=== PATIENT | male | born 1980 | race Caucasian/White ===

== ENCOUNTER 2016-07-09 12:12 | Inpatient (IN) | payer OTHER ==
[~2016-07-09] VITALS: Ht 188 cm; Wt 95.3 kg
--- NOTE | 2016-07-09 13:31 | ED PSYCHIATRIC COMPLAINT ---
History of Present Illness General Chief Complaint: ETOH/Drug Related Complaint Stated Complaint: ETOH DETOX Source: patient, family Exam Limitations: intoxication Allergies Coded Allergies: NO KNOWN ALLERGIES (08/23/12) Reconcile Medications No Known Home Medications Triage Note: 35 YEAR OLD MALE STATES THAT HE NEEDS DETOX FROM ETOH, LAST DRANK THIS AM A SIX PACK OF BEER AND 1/2 PINT OF [place]THER[place] COMFORT. LAST DETOX WAS 3 YEARS AGO AND WAS IN A 18 MONTH RESIDENTIAL PROGRAM. PT STATES THAT HE HAS A HISTORY OF SEIZURES. DENIES SI/HI. LAST DRINK WAS 30 MINUTES AGO Triage Nurses Notes Reviewed? yes HPI: Patient is a 35-year-old male presents requesting alcohol detox. Patient reports he began drinking again 6 months ago drinks approximately 3 pints of Southern comfort and 12 beers daily. Last drink was just prior to arrival. Patient has had an alcohol withdrawal seizure in 2011, none since. Patient complaining of upper abdominal pain, anxiety, nausea. Symptoms are currently severe. Intermittent cannabis use. Patient has used cocaine previously, denies any recent use. Patient reports he has fallen twice over the past 1 week, falling onto his knees both times. Patient denies any head injuries, suicidal ideation, recent illicit substance use. (PACO BEY,BRANDI) Vital Signs & Intake/Output Vital Signs & Intake/Output Vital Signs Date Time Temp Pulse Resp B/P B/P Pulse O2 O2 Flow FiO2 Mean Ox Delivery Rate 07/09 2024 97.8 120 20 146/90 93 Room Air 07/09 1929 99.0 120 18 122/78 95 Room Air 07/09 1711 99.3 123 16 143/90 07/09 1705 99.3 123 16 143/90 95 Room Air 07/09 1605 97.5 119 16 139/86 07/09 1603 97.5 119 16 139/86 94 Room Air 07/09 1511 Room Air 07/09 1405 98.3 124 18 144/88 07/09 1226 98.3 124 18 144/88 98 Room Air Past History Travel History Traveled to [place] past 21 day No Medical History Any Pertinent Medical History? 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 No (BRANDI THORPE) Review of Systems Review of Systems Constitutional: Denies: chills, fever. EENTM: Reports: no symptoms. Respiratory: Denies: cough, short of breath. Cardiovascular: Denies: chest pain. GI: Reports: see HPI, abdominal pain, nausea. Genitourinary: Reports: no symptoms. Musculoskeletal: Reports: joint pain (chronic, unchanged). Skin: Reports: no symptoms. Neurological/Psychological: Reports: see HPI. Hematologic/Endocrine: Reports: no symptoms. Immunologic/Allergic: Reports: no symptoms. (BRANDI THORPE) Physical Exam Physical Exam General Appearance: alert, awake, intoxicated Head: atraumatic, normal appearance Eyes: Bilateral: normal appearance, PERRL, EOMI. Ears, Nose, Throat: normal pharynx, normal ENT inspection, hearing grossly normal Neck: normal inspection, supple, full range of motion, no midline tenderness Respiratory: normal breath sounds, chest non-tender, no respiratory distress, lungs clear Cardiovascular: tachycardia (regular rhythm, no murmur) Gastrointestinal: normal bowel sounds, soft, diffuse upper abdominal tenderness. No rebound, no guarding, no rigidity Extremities: normal range of motion Neurological/Psychiatric: awake, alert, anxious, at times inappropriate affect. No suicidal ideation. Thoughts/Hallucinations: no apparent hallucination Skin: intact, normal color, warm/dry SAD PERSONS Done? patient not suicidal (BRANDI THORPE) Progress Differential Diagnosis: drug intoxication, drug overdose, drug withdrawal, electrolyte abnormality, alcohol intoxication, alcohol withdrawal (BRANDI THORPE) Plan of Care: Orders Procedure Date/time Status Regular Diet 07/10 B Active CBC WITHOUT DIFFERENTIAL 07/10 599 Active BASIC ELECTROLYTES PLUS BUN&CR 07/10 599 Active PROTHROMBIN TIME 07/09 2129 Active PHOSPHORUS 07/09 2129 Active FOLIC ACID 07/09 2129 Active VITAMIN B12 07/09 2129 Active Vital Signs 07/09 2026 Active Teach/Educate 07/09 2026 Active Pain Treatment and Response 07/09 2026 Active Nutritional Intake, Monitor 07/09 2026 Active Isolation 07/09 2026 Active Intake & Output 07/09 2026 Active Patient Care Conference 07/09 2026 Active Activity/Ambulation 07/09 2026 Active CHLAMYDIA DNA PROBE 07/09 2024 Active HIV (Reflex to HIVCQ) 07/09 2024 Active URINALYSIS 07/10 1915 Active EKG 07/09 1914 Active TRC EVALUATION (GEN) 07/09 190 Active PT Evaluate & Treat 07/09 190 Active Saline Lock 07/09 190 Active Pathway - chart 07/09 190 Active House Staff 07/09 1908 Active Code Status 07/09 1908 Active Misc Message 07/09 184 Active ED Holding Orders 07/09 1841 Active Vital Signs 07/09 184 Active Code Status 07/09 1841 Complete Patient Data 07/09 1814 Active Admit to inpatient 07/09 1804 Active Add-on Test (ER Only) 07/09 1719 Active Intake & Output 07/09 1606 Active MAGNESIUM 07/09 1500 Complete CIWA 07/09 1344 Complete URINE DRUGS OF ABUSE 07/09 1341 Complete LIPASE 07/09 1341 Complete ETHANOL 07/09 1341 Complete COMPREHENSIVE METABOLIC PANEL 07/09 1341 Complete CBC WITHOUT DIFFERENTIAL 07/09 1341 Complete AMYLASE 07/09 1341 Complete Lab Add-on Test 07/09 UNK Active VTE Mechanical Prophylaxis 07/09 UNK Active Vital Signs 07/09 UNK Complete Intake & Output 07/09 UNK Complete CIWA 07/09 UNK Active SOCIAL WORK CONSULT 07/09 UNK Active Current Medications Sig/Jeanne Start time Last Medication Dose Stop Time Status Admin Folic Acid 1 MG DAILY 07/11 1000 AC (Folic Acid) Multivitamins 1 TAB DAILY 07/11 1000 AC (Theragran Vitamins) Cyanocobalamin/ 1 BAG DAILY@1700 07/10 1700 AC Thiamine/Pyridoxine 07/11 0059 (Vitamin in I.V.) Sodium Chloride 1,000 ML (Normal Saline 0.9%) Lorazepam 2 MG Q6 07/09 2359 AC (Ativan) 07/10 0001 Thiamine HCl 500 MG TID 07/09 2200 AC (Vitamin B-1) 07/12 1702 Sodium Chloride 100 ML (Normal Saline 0.9%) Acetaminophen 500 MG Q12P PRN 07/09 1914 AC (Tylenol) Lorazepam 0 Q1P PRN 07/09 1914 AC 07/09 (Ativan) 2122 Ondansetron HCl 4 MG Q8P PRN 07/09 1914 AC 07/09 (Zofran) 2044 Oxycodone HCl 5 MG Q8P PRN 07/09 1914 (Roxicodone) Enoxaparin Sodium 40 MG DAILY 07/09 1904 AC 07/09 (Lovenox) 2005 Cyanocobalamin/ 1 BAG ONCE ONE 07/09 1545 AC 07/09 Thiamine/Pyridoxine 07/09 9054 1709 (Vitamin in I.V.) Dextrose/Water 1,000 ML (D5W 1000) Laboratory Tests 07/09/16 2105: HIV 1&2 Ab Western Blot Pending 07/09/16 1500: Anion Gap 17 H, Estimated GFR > 60, BUN/Creatinine Ratio 15.0, Glucose 106 H, Calcium 8.2 L, Magnesium 2.2, Total Bilirubin 0.7, AST 246 H, ALT 174 H, Alkaline Phosphatase 120, Total Protein 7.0, Albumin 4.0, Globulin 3.0, Albumin/ Globulin Ratio 1.3, Amylase 54, Lipase 173, CBC w Diff NO MAN DIFF REQ, RBC 5.45 , MCV 93.0, MCH 31.5 H, RDW 14.7 H, MPV 8.3, Gran % 63.8, Lymphocytes % 29.0, Monocytes % 6.3, Eosinophils % 0.3, Basophils % 0.6, Absolute Granulocytes 4.8, Absolute Lymphocytes 2.2, Absolute Monocytes 0.5, Absolute Eosinophils 0, Absolute Basophils 0, PUBS MCHC 33.9, Serum Alcohol 283.0 07/09/16 1445: Urine Opiates Screen < 100.00, Methadone Screen < 40, Barbiturate Screen < 60, Ur Phencyclidine Scrn < 6.00, Amphetamines Screen < 100, U Benzodiazepines Scrn < 85, Urine Cocaine Screen < 50, Urine Cannabis Screen 40.30, Urine Color Pending, Urine Clarity Pending, Urine pH Pending, Ur Specific [place] Pending, Urine Protein Pending, Urine Ketones Pending, Urine Nitrite Pending, Urine Bilirubin Pending, Urine Urobilinogen Pending, Ur Leukocyte Esterase Pending, Ur Microscopic Pending, Urine Hemoglobin Pending, Urine Glucose Pending 07/09/16 1000: Vitamin B12 Cancelled Microbiology 07/09 2024 URINE ROUT: Chlamydia DNA Probe (CLARA) - ORD 1550: Results of labs discussed with patient and his sister. Patient reports anxiety is currently severe. Discussed that medicating patient at this time for his anxiety would interfere with the possibility of him being admitted for alcohol detox. 1730: Patient CIWA score 15, patient continues to request alcohol detox. 2 mg of IV Ativan ordered. Hospitalist paged to discuss disposition. (BRANDI THORPE) Departure Departure Disposition: STILL A PATIENT Condition: Stable Clinical Impression Primary Impression: Alcohol withdrawal Qualifiers: Complication of substance-induced condition: uncomplicated Qualified Code: F10.230 - Alcohol dependence with withdrawal, uncomplicated Secondary Impressions: Elevated LFTs Referrals: UNKNOWN (PCP/Family) Departure Forms: Customer Survey General Discharge Information Prescriptions: Current Visit Scripts No Known Home Medications Admission Note Spoke With: GARRETT AG MD Documentation of Exam: Documentation of any treatments & extenuating circumstances including Concerns Regarding Discharge (functional status, medication knowledge or non-compliance, living conditions, etc.) that warrant an admission rather than observation: ciwa monitoring, ativan for prevention of seizures/DT's, social work consultation (BRANDI THORPE) PA/ASSOCIATE PRODUCER Co-Sign Statement Statement: ED Attending supervision documentation- [x] I saw and evaluated the patient. I have also reviewed all the pertinent lab results and diagnostic results. I agree with the findings and the plan of care as documented in the PA's/ASSOCIATE PRODUCER's documentation. [] I have reviewed the ED Record and agree with the PA's/ASSOCIATE PRODUCER's documentation. [] Additions or exceptions (if any) to the PAs/ASSOCIATE PRODUCER's note and plan are summarized below: [] (CHRIS HOLBROOK,JULIÁN Poe)
[2016-07-09 14:05] VITALS: BP 144/88
[2016-07-09 15:17] LABS: ABSOLUTE BASOPHIL COUNT 0 /CUMM (0.0-0.2); ABSOLUTE EOSINOPHIL COUNT 0 /CUMM (0.0-0.7); ABSOLUTE GRANULOCYTE CT 4.8 /CUMM (1.4-6.5); ABSOLUTE LYMPH COUNT 2.2 /CUMM (1.2-3.4); ABSOLUTE MONOCYTE COUNT 0.5 /CUMM (0.10-0.60); BASOPHIL % 0.6 % (0.0-2.0); EOSINOPHIL % 0.3 % (0-5); GRANULOCYTE % 63.8 % (42.2-75.2); HEMATOCRIT 50.7 % (42-52); MEAN CORPUSCULAR HGB 31.5 PG (27.0-31.0); MEAN CORPUSCULAR HGB CONC 33.9 G/DL (33.0-37.0); MEAN PLATELET VOLUME 8.3 FL (7.4-10.4); PLATELET COUNT 219 /CUMM (130-400); RBC DISTRIBUTION WIDTH 14.7 % (11.5-14.5); RED BLOOD CELL CT 5.45 /CUMM (4.70-6.10); WHITE BLOOD CELL COUNT 7.6 /CUMM (4.8-10.8)
[2016-07-09 16:05] VITALS: BP 139/86
[2016-07-09 17:11] VITALS: BP 143/90
--- NOTE | 2016-07-09 18:17 | History & Physical ---
JARED HOLBROOK,[facility] 07/09/16 1816: General Information and HPI MD Statement: I have seen and personally examined KRIS BELAL and documented this H&P. The patient is a 35 year old M who presented with a patient stated chief complaint of [Etoh detox]. Source of Information: patient, family, police Exam Limitations: no limitations History of Present Illness: 35/M with PMHx of ankylosing spondylitis and multiple alcohol detox admission presented to [facility] asking for alcohol detox because now he gets alcohol withdrawal symptom within few hours after not drinking. Patient has a history of multiple alcohol detox admissions with one episode of seizure that required ICU admission in 2012. Patient started drinking again around one year ago, he drinks approximately 3 pints of Southern comfort and 12 beers daily. Patient last drink was earlier today. Patient had 2 episodes of fall where he landed on his knees, he denies any head trauma. Patient reported palpitations, chest pain, shortness breath, cough productive of nonbloody white sputum, epigastric abdominal pain, nausea, multiple nonbloody vomiting, shortness breath, headache, and anxiety. Patient denies hallucination, suicidal or homicidal ideation, or loss of consciousness. Patient smoke 1/2 PPD for the past 25 years. Patient reported occasional use of cannabis. He denies any other recreational drug abuse. Patient reported 2 episodes of dysuria and hematuria 2 months ago, he has a girlfriend who recently got diagnosed with chlamydia. Patient also reports multiple episodes of yellow, thick, and smelly diarrhea, he related this diarrhea to heavy drinking. He also had hemorrhoids where he noticed some bright red blood on the toilet tissue. Patient use walker at baseline because of pain on his knees and hips secondary to ankylosing spondylitis. He was started on methotrexate at some point by his data collection associate, however he did not follow with PCP, data collection associate or any other physicians for a long time. Now patient is not on any medications. 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 Denies: chills, fever, malaise, unexplained weight loss. EENTM: Denies: blurred vision, double vision, visual changes, hearing changes. Cardiovascular: Reports: chest pain (mild), palpitations. Denies: edema, orthopena, peripheral edema, syncope. Respiratory: Reports: sputum production. Denies: cough, hemoptysis, orthopnea, short of breath, stridor, wheezing. GI: Reports: abdominal pain, diarrhea, nausea, vomiting, steatorrhea. Denies: bloating, constipation, distention, bloody stool. Genitourinary: Reports: dysuria, hematuria. Musculoskeletal: Reports: joint pain (knees and hips ). Exam & Diagnostic Data Last 24 Hrs of Vital Signs/I&O Vital Signs Date Time Temp Pulse Resp B/P B/P Pulse O2 O2 Flow FiO2 Mean Ox Delivery Rate 07/09 1929 99.0 120 18 122/78 95 Room Air 07/09 1711 99.3 123 16 143/90 07/09 1705 99.3 123 16 143/90 95 Room Air 07/09 1605 97.5 119 16 139/86 07/09 1603 97.5 119 16 139/86 94 Room Air 07/09 1511 Room Air 07/09 1405 98.3 124 18 144/88 07/09 1226 98.3 124 18 144/88 98 Room Air Intake & Output 07/09 1600 07/09 0800 07/09 0000 Intake Total Output Total Balance Patient 95.254 kg Weight Physical Exam General Appearance Alert, Oriented X3, Cooperative, No Acute Distress Skin mild bruises over the left knee HEENT Atraumatic, PERRLA, EOMI, Mucous Membr. moist/pink Cardiovascular Regular Rate, Normal S1, Normal S2, No Murmurs Lungs wheezing and rhonchi over both lungs Abdomen Normal Bowel Sounds, Soft, epigastric and LUQ tenderness Neurological Normal Speech, Strength at 5/5 X4 Ext (on UE b/l), 3/4 strenth on the LE B/L Extremities No Clubbing, No Cyanosis, tenderness on knee and hip B/L with decrease ROM Last 24 Hrs of Labs/William: Laboratory Tests 07/09/16 2105: HIV 1&2 Ab Western Blot Pending 07/09/16 1500: Anion Gap 17 H, Estimated GFR > 60, BUN/Creatinine Ratio 15.0, Glucose 106 H, Calcium 8.2 L, Magnesium 2.2, Total Bilirubin 0.7, AST 246 H, ALT 174 H, Alkaline Phosphatase 120, Total Protein 7.0, Albumin 4.0, Globulin 3.0, Albumin/ Globulin Ratio 1.3, Amylase 54, Lipase 173, Vitamin B12 Pending, Folate Pending, CBC w Diff NO MAN DIFF REQ, RBC 5.45, MCV 93.0, MCH 31.5 H, RDW 14.7 H, MPV 8.3, Gran % 63.8, Lymphocytes % 29.0, Monocytes % 6.3, Eosinophils % 0.3, Basophils % 0.6, Absolute Granulocytes 4.8, Absolute Lymphocytes 2.2, Absolute Monocytes 0.5, Absolute Eosinophils 0, Absolute Basophils 0, PUBS MCHC 33.9, Serum Alcohol 283.0 07/09/16 1445: Urine Opiates Screen < 100.00, Methadone Screen < 40, Barbiturate Screen < 60, Ur Phencyclidine Scrn < 6.00, Amphetamines Screen < 100, U Benzodiazepines Scrn < 85, Urine Cocaine Screen < 50, Urine Cannabis Screen 40.30 Microbiology 07/09 2024 URINE ROUT: Chlamydia DNA Probe (WILLIAM) - ORD Assessment/Plan Assessment: #Alcohol Detox/transaminitis/abdominal pain Patient is withdrawing and scoring high on CIWA even though his serum alcohol level is 280s. Patient reporting consuming large amount of alcohol daily. Patient also has transaminitis with AST/ALT 2:1, this is most likely secondary to alcohol abuse. Patient also had epigastric tenderness which most likely gastritis secondary to alcohol abuse. * We will start an Ativan 2 mg every 6 scheduled * We will start 1 mg IV every when necessary * Patient received banana bag * We will check B12, phosphorus, folic acid, magnesium, phosphorus * We will start oral B12, folic acid, and thiamine * We will check INR. * We will start PPI * Zofran when necessary * IV fluid and hydration * Psych and social consult in a.m.(patient was informed and agreed) #High risk Patient has a history of multiple drug abuse. He also reported that his girlfriend was chlamydia positive. * We will check for HIV * We will check Chlamydia PCR and urine #Shortness breath, and chest pain. Patient has a long smoking history, On examination he was found to have wheezing and rhonchi over both lungs. His WBCs within normal limits. He has no fever. Chest Xray shows; No convincing acute process. * TRC when necessary #Ankylosing spondylitis with bilateral knee and hip pain. * PT eval in a.m. Regular diet DVT prophylaxis Full code As Ranked By This Provider Problem List: 1. Alcohol withdrawal Qualifiers Complication of substance-induced condition: uncomplicated Qualified Code: F10.230 - Alcohol dependence with withdrawal, uncomplicated 2. Elevated LFTs Core Measures/Miscellaneous Acute Coronary Syndrome ACS Diagnosis: No Cerebrovascular Accident CVA/TIA Diagnosis: No Congestive Heart Failure CHF Diagnosis: No Venous Thromboembolism VTE Risk Factors: Acute medical illness No [facility] VTE prophylaxis d/t: No contraindications No VTE Pharm Prophylaxis d/t: No contraindications VTE Diagnosis: No VTE Type: NONE VTE Confirmed by (Test): NONE Severe Sepsis Severe Sepsis Present: No Septic Shock Septic Shock Present: No Miscellaneous Documentation Attending Case Discussed With: GARRETT AG MD Primary Care Physician: UNKNOWN Patient sees these Specialists Psychiatric Level of Patient Care: General Medicine SILKEKIMBERLYVAGREGG 07/09/162040: Resident Review Statement Resident Statement: examined this patient, discussed with compliance intern, agreed with compliance intern, discussed with family, reviewed EMR data (avail), reviewed images, amended to note Other Findings: This is 35-year-old male with past medical history of ankylosing spondylitis not in any current management, history of alcohol withdrawal seizure, history of ICU admission, history of multiple admission for alcohol detox. Patient presented to the emergency department requesting a core detox, patient stated that his last drink was prior to his arrival to the emergency department. Patient stated that he was sober for 6 month and he went back to drink due to stressor in his life, he stated that he drinks 3 pints of Southern comfort and 12 beers daily. He reports fine tremor, palpitation, sweating, anxiety, agitation, nausea, vomiting. He deny suicidal ideation, hallucination. Patient reports mild chest pain that is associated with cough with whitish sputum, abdominal discomfort, multiple episode of on and off watery diarrhea, remote history of hematuria around 2 month ago. Also patient report multiple falls as he was his walker to walk due to his underlying ankylosing spondylitis, patient deny any head trauma but he reports right knee bruises and pain, patient stated that he always have chronic pain in his knee and hip. Physical examination, lab and imaging as above. Assessment: -Alcohol detox: Due to the patient underlying history of chronic alcohol issues, possible need to be admitted for alcohol detox, also the patient needs close monitoring as he had previous history of alcohol withdrawal seizure, he will need social research assistant consultation and psychiatry evaluation in a.m. -Joint pain: Most likely secondary to his underlying ankylosing spondylitis, but due to his recent history of fall his right knee need to be further evaluated by basic imaging to rule out any fracture. -Difficulty breathing: Given the patient history of chronic smoking, and due to his expiratory wheezing during physical examination questionable underlying bronchitis. -History of diarrhea: Due to the patient's history of ankylosing spondylitis patient will need outpatient workup to rule out any underlying chronic pancreatitis, IBD. Also his. Patient could be secondary to his drinking habits. -Anion gap metabolic acidosis: Most likely secondary to his alcohol drinking. Patient will need IV fluid and oral hydration. Plan: -Admit patient to general medicine floor -Vitals every shift, I and O's, CIWA -Start the patient on Ativan 2 mg by mouth every 6 -IV Ativan per CIWA protocol -Continue banana bag hydration -Start the patient high dose of IV thiamine -Start the patient on multivitamin, folic acid -IV Zofran when necessary for nausea and vomiting -X-ray of the right knee for further evaluation -Chest x-ray for further evaluation, TRC and nebs as needed -Check INR, magnesium, phosphate -automobile body worker consultation in a.m. -Physical therapy consultation am. -Pain pathway -DVT prophylaxis subcutaneous Lovenox -Full code [email or web address] 07/10/16 0035: Attending MD Review Statement Attending Statement Attending MD Statement: examined this patient, discuss w/resident/PA/EQUAL OPPORTUNITY COUNSELOR, agreed w/resident/PA/EQUAL OPPORTUNITY COUNSELOR, reviewed EMR data (avail), reviewed images, amended to note Attending Assessment/Plan: CC: alcohol detox PMH: Alcoholism, polysubstance abuse, ankylosing spondylitis (currently not on treatment), current smoker Patient came to ER requesting alcohol detox. His last drink was this AM. He had been through rehabilitation for 18 months and was sober for some time then started drinking again 6 months ago. He drinks 3 pints of hard liquor and 12 beers daily. He reports alcohol withdrawal seizure in 2012 once. Patient was previously hospitalized and in ICU for severe alcohol withdrawal. He complains of upper abdominal pain, anxiety, nausea, on and off chest pain, knee pain. He denies loss of consciousness, seizures, headache, vision problem but he has been falling, hurting his knee. He also admits intermittent cannabis use. He quit cocaine use after rehabilitation, a few years back. He reports an episode of hematuria a few months back associated with severe abdominal and urethral pain probably passed a stone at that time but did not mention any hematuria after that. Vitals: Afebrile, pulse 120s, RR 18, blood pressure 140/90, saturating well on room air On exam: A O 3, cooperative, tremors present, anxious no acute distress, neck supple, JVD normal, no lymphadenopathy, mucosa dry, no focal neurological deficit, no dependent edema, no obvious skin rashes or inflammation CVS: S1-S2, RRR. RS diffuse wheezing bilaterally. Abdomen: Soft, NT, ND, bowel sounds present. Labs: Bicarbonate 20, and an gap 17, BUN 12, creatinine 0.8, glucose 106, AST 246, ALT 174, alkaline phosphatase 120, albumin 4, lipase 173,, INR 1.06, alcohol 283. EKG: Normal sinus rhythm A and P # Alcohol withdrawal # Metabolic acidosis # Transaminitis # Fall with knee pain # History of ankylosing spondylitis - Admit to medical floor - Check magnesium, INR - Continue IV fluids 100-150 mL per hour, replace electrolytes, high-dose thiamine, folic acid. - Scheduled Ativan 2 mg every 6 hours, IV Ativan when necessary according to CIWA score, taper scheduled Ativan according to symptoms - Protonix 40 mg IV daily - TRC, albuterol and ipratropium nebulization (history of smoking, currently wheezing) - Nicotine patch - Patient needs to be followed up outpatient for his history of ankylosing spondylitis, patient has been off medications since a few months. - Check urine PCR for chlamydia, check HIV (as per patient's request) (his girlfriend had chlamydia 3 year pack, not sure he had checked it are not, ? Treatment) - Advance diet as tolerated - Patient CIWA score is high, extensive alcohol history, low threshold to transfer to ICU for Ativan drip.
[2016-07-09 20:25] VITALS: BP 146/90
--- NOTE | 2016-07-09 20:53 | RADIOLOGY REPORT ---
EXAMINATION: XR KNEE, RIGHT CLINICAL INFORMATION: Fracture. Status post fall. Pain. COMPARISON: None TECHNIQUE: Four views of the right knee. FINDINGS: No fracture or dislocation seen. No joint effusion. There is medial greater than lateral marginal tibial osteophytosis. There is tibial spine hypertrophy. There are osteophytes of the superior trochlea. Dystrophic calcifications are seen in the distal vastus lateralis. Additional well-corticated ossific fragments are seen, possibly intra-articular bodies. IMPRESSION: No acute osseous abnormality. Tricompartmental degenerative arthrosis. The degree of degenerative arthrosis is greater than expected for the patient's age.
--- NOTE | 2016-07-09 21:33 | RADIOLOGY REPORT ---
EXAMINATION: XR PORTABLE CHEST CLINICAL INFORMATION: Cough, difficulty breathing, wheezing COMPARISON: 01/23/2012 TECHNIQUE: Portable AP view of the chest was obtained. FINDINGS: The inferior aspect of the left costophrenic angle is excluded from the [id number]. No repeat image obtained. Otherwise, the visualized lungs appear clear. No pleural effusion. Cardiomediastinal contours appear stable. Visualized osseous structures appear intact. IMPRESSION: Mildly limited exam. No convincing acute process.
[2016-07-09 23:07] LABS: PT 11.1 SEC (9.4-12.5)
[2016-07-10] VITALS (10 sets, daily range): BP systolic 130–176; BP diastolic 98–120
--- NOTE | 2016-07-10 00:37 | Admission Certification ---
Admission Certification Certification Statement - As attending physician, I certify that at the time of - admission, based on clinical presentation, severity of - symptoms, need for further diagnostic testing and - therapeutic interventions, and risk of adverse outcomes - without in-hospital treatment, in my clinical assessment, - this patient requires an acute hospital stay for a minimum - of two nights or longer. I have also considered psychsocial - factors such as support system, advanced age, financial - issues, cognitive issues, and failed out-patient treatments, - past re-admission history, safety of patient, and lack of - compliance as applicable. Specific rationale supporting this admission is: Alcohol detox
[2016-07-10 08:09] LABS: ABSOLUTE BASOPHIL COUNT 0 /CUMM (0.0-0.2); ABSOLUTE EOSINOPHIL COUNT 0.1 /CUMM (0.0-0.7); ABSOLUTE GRANULOCYTE CT 4.3 /CUMM (1.4-6.5); ABSOLUTE LYMPH COUNT 1.4 /CUMM (1.2-3.4); ABSOLUTE MONOCYTE COUNT 0.5 /CUMM (0.10-0.60); BASOPHIL % 0.5 % (0.0-2.0); GRANULOCYTE % 67.9 % (42.2-75.2); MEAN CORPUSCULAR HGB 31.9 PG (27.0-31.0); MEAN CORPUSCULAR VOLUME 93.7 FL (80.0-94.0); MEAN PLATELET VOLUME 8.8 FL (7.4-10.4); PLATELET COUNT 182 /CUMM (130-400); RBC DISTRIBUTION WIDTH 14.3 % (11.5-14.5); RED BLOOD CELL CT 4.73 /CUMM (4.70-6.10); WHITE BLOOD CELL COUNT 6.4 /CUMM (4.8-10.8)
[2016-07-10 08:38] LABS: HEMATOCRIT 44.3 % (42-52)
--- NOTE | 2016-07-10 11:31 | PN- Student ---
Subjective Subjective: CC: Alcohol detoxification HPI: Patient is a 35 year old male with a past medical history significant for Ankylosing spondylitis and multiple admissions for alcohol detox who presented on 07/09/16 with complaint of needing alcohol detox secondary to rapid onset withdrawal symptoms. Patient required ICU admission in 2011 due to an episode of seizure secondary to alcohol withdrawal. He reports drinking roughly 3 pints of Southern comfort, in addition to 12 beers daily. Patient also reports falling on his knees twice with no head trauma. Pertinent positives include palpitations, chest pain, shortness of breath, cough productive of nonproductive of white sputum, epigastric and abdominal pain, nausea, nonbloody vomiting, headache, anxiety, multiple episodes of yellow, thick, and smelly diarrhea. 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 Denies: chills, fever, malaise, unexplained weight loss. EENTM: Denies: blurred vision, double vision, visual changes, hearing changes. Cardiovascular: Reports: Chest pain (mild), palpitations. Denies: edema, orthopena, peripheral edema, syncope. Respiratory: Reports: Sputum production. Denies: cough, hemoptysis, orthopnea, short of breath, stridor, wheezing. GI: Reports: Abdominal pain, diarrhea, nausea, vomiting, steatorrhea. Denies: bloating, constipation, distention, bloody stool. Genitourinary: Reports: Dysuria, hematuria. Musculoskeletal: Reports: Joint pain (knees and hips ). Objective Objective: Vital Signs Date Time Temp Pulse Resp B/P B/P Pulse O2 O2 Flow FiO2 Mean Ox Delivery Rate 07/10 1224 98.4 122 22 176/112 96 Room Air Room Air 07/10 1200 98.4 122 18 176/112 07/10 1139 98 Room Air Room Air 07/10 1057 124 170/110 07/10 1000 100.3 124 20 170/110 07/10 0900 122 07/10 0800 120 07/10 0614 98.1 119 22 158/98 96 07/10 0600 154/98 07/09 2339 Room Air 07/09 2130 96 Room Air 07/09 2025 97.8 120 20 146/90 93 Room Air 07/09 1929 99.0 120 18 122/78 95 Room Air 07/09 1711 99.3 123 16 143/90 07/09 1705 99.3 123 16 143/90 95 Room Air 07/09 1605 97.5 119 16 139/86 07/09 1603 97.5 119 16 139/86 94 Room Air 07/09 1511 Room Air 07/09 1405 98.3 124 18 144/88 Intake & Output 07/10 1600 07/10 0800 07/10 0000 Intake Total 670 2425 Output Total 950 500 Balance -280 1925 Intake, IV 650 5 Intake, Oral 20 400 Output, Urine 950 500 Patient 210 lb Weight Weight Reported by Patient Measurement Method Physical Exam General Appearance Alert, Oriented X3, Cooperative, No Acute Distress Skin Mild bruises over the left knee HEENT Atraumatic, PERRLA, EOMI, Mucous Membr. moist/pink Cardiovascular Regular Rate, Normal S1, Normal S2, No Murmurs Lungs Wheezing and rhonchi over both lungs Abdomen Normal Bowel Sounds, Soft, epigastric and LUQ tenderness Neurological Normal Speech, Strength at 5/5 X4 Ext (on UE b/l), 3/4 strenth on the LE B/L Extremities No Clubbing, No Cyanosis, Tenderness on knee and hip B/L with decrease ROM Current Medications Sig/Jeanne Start time Last Medication Dose Route Stop Time Status Admin Acetaminophen 500 MG Q12P PRN 07/09 1915 AC PO Albuterol Sulfate 3 ML Q4P PRN 07/09 2345 AC INH Clonidine 0.1 MG TID PRN 07/10 1045 AC 07/10 PO 1057 Cyanocobalamin/ 1 BAG DAILY@1700 07/10 1700 AC Thiamine/Pyridoxine IV 07/11 0059 Sodium Chloride 1,000 ML Cyanocobalamin/ 1 BAG ONCE ONE 07/09 1545 DC 07/09 Thiamine/Pyridoxine IV 07/09 234 1709 Dextrose/Water 1,000 ML Enoxaparin Sodium 0 .STK-MED ONE 07/09 2003 DC SC Enoxaparin Sodium 40 MG DAILY 07/09 1905 AC 07/10 SC 0930 Famotidine 0 .STK-MED ONE 07/09 1505 DC IV Folic Acid 1 MG DAILY 07/11 1000 AC PO Lorazepam 2 MG Q6 07/10 0600 AC 07/10 PO 1219 Lorazepam 2 MG Q6 07/09 2359 DC 07/09 PO 07/10 0001 2353 Lorazepam 0 Q1P PRN 07/09 1915 AC 07/10 IV 0930 Lorazepam 2 MG ONE ONE 07/09 1730 DC 07/09 IV 07/09 1731 1728 Lorazepam 0 .STK-MED ONE 07/09 1726 DC .ROUTE Lorazepam 0 .STK-MED ONE 07/09 1505 DC .ROUTE Multivitamins 1 TAB DAILY 07/11 1000 AC PO Nicotine 14 MG DAILY 07/10 1000 AC 07/10 TOP 0833 Nicotine 0 .STK-MED ONE 07/09 1445 DC TOP Nicotine 21 MG ONCE ONE 07/09 1430 DC 07/09 TOP 07/09 1431 1448 Omeprazole 40 MG DAILY AC 07/10 0700 CAN PO Ondansetron HCl 4 MG Q8P PRN 07/09 191 AC 07/09 IV 2045 Ondansetron HCl 0 .STK-MED ONE 07/09 1504 DC .ROUTE Oxycodone HCl 5 MG Q8P PRN 07/09 1915 AC PO Pantoprazole Sodium 40 MG DAILY 07/10 0315 AC 07/10 IV 0929 Patient Medication 1 ED .STK-MED ONE 07/10 1340 [place] Teaching ED 07/10 1341 Patient Medication 1 UNIT ONE NR 07/09 1930 [place] Teaching ED 07/09 2000 Patient Medication 1 UNIT ONE NR 07/09 1930 [place] Teaching ED 07/09 2000 Sodium Chloride 1,000 ML BOLUS ONE 07/09 1545 DC 07/09 IV 07/09 1644 1602 Sodium Chloride 1,000 ML BOLUS ONE 07/09 1345 DC 07/09 IV 07/09 1444 1509 Thiamine HCl 500 MG TID 07/09 2200 AC 07/10 Sodium Chloride 100 ML IV 07/12 1702 0959 Thiamine HCl 0 .STK-MED ONE 07/09 1657 DC .ROUTE Tramadol HCl 50 MG Q6 PRN 07/09 1914 DC PO Assessment/Plan Assessment: Patient is a 35 year old male with a past medical history significant for Ankylosing spondylitis and multiple admissions for alcohol detox who presented on 07/09/16 with complaint of needing alcohol detox secondary to rapid onset withdrawal symptoms. 1 - Alcohol Detox/Transaminitis/Abdominal Pain 2 - STI Risk 3 - Shortness of breath and chest pain 4 - Ankylosing Spondylitis 1 - Alcohol Detox/Transaminitis/Abdominal Pain Patient had a blood alcohol of 283 and a CIWA score of 12 on admission. CIWA score was between 8 and 16 on 07/09/16, and between 0 and 27 on 07/10/16. Patient also had an AST/ALT of 2:1 indicating alcohol induced transaminitis, as well as epigastric pain most likely due to alcohol abuse. * Ativan 2mg Q6 * Ativan 1mg as needed * INR of 1.06 * IV fluids * Psych and social consult 2 - STI Risk Patient reports that his girlfriend was tested positive for Chlamydia. He also history of alcohol abuse. * HIV 1&2 Ab Western Blot: Nonreactive * Chlamydia DNA Probe: Pending 3 - Shortness of breath and chest pain Patient has a smoking history of 1 pack per day for 25 years, with a positive finding of wheezing and ronchi over both lungs. Patient has no fever, normal WBC , and a negative chest x-ray. * TRC when necessary 4 - Ankylosing Spondylitis * Physical evaluation Regular diet DVT Prophylaxis Full code
--- NOTE | 2016-07-10 11:39 | PN- Housestaff ---
JARED HOLBROOK,ISMAIL 07/10/16 1139: Subjective Follow-up For: -Etoh detox -Ankylosing spondylitis Subjective: Afebrile, tachycardia, hypertensive. Patient denies any current complaints, however he looks mildly anxious. Review of Systems Constitutional: Reports: no symptoms. Objective Last 24 Hrs of Vital Signs/I&O Vital Signs Date Time Temp Pulse Resp B/P B/P Pulse O2 O2 Flow FiO2 Mean Ox Delivery Rate 07/10 1528 120 152/116 07/10 1400 98.4 120 22 152/116 07/10 1224 98.4 122 22 176/112 96 Room Air Room Air 07/10 1200 98.4 122 18 176/112 07/10 1139 98 Room Air Room Air 07/10 1057 124 170/110 07/10 1000 100.3 124 20 170/110 07/10 0900 122 07/10 0800 120 07/10 0614 98.1 119 22 158/98 96 07/10 0600 154/98 07/09 2339 Room Air 07/09 2130 96 Room Air 07/09 2025 97.8 120 20 146/90 93 Room Air 07/09 1929 99.0 120 18 122/78 95 Room Air 07/09 1711 99.3 123 16 143/90 07/09 1705 99.3 123 16 143/90 95 Room Air 07/09 1605 97.5 119 16 139/86 07/09 1603 97.5 119 16 139/86 94 Room Air Intake & Output 07/10 1600 07/10 0800 07/10 0000 Intake Total 670 2425 Output Total 950 500 Balance -280 1925 Intake, IV 650 5 Intake, Oral 20 400 Output, Urine 950 500 Patient 95.254 kg Weight Weight Reported by Patient Measurement Method Physical Exam General Appearance: Alert, Oriented X3, Cooperative, No Acute Distress HEENT: Atraumatic, PERRLA, EOMI, Mucous Membr. moist/pink Cardiovascular: Regular Rate, Normal S1, Normal S2, No Murmurs Lungs: Clear to Auscultation, Normal Air Movement Abdomen: Normal Bowel Sounds, Soft, mild epigastric tenderness Neurological: Normal Speech, Strength at 5/5 X4 Ext Extremities: No Clubbing, No Cyanosis, No Edema, left leg is covered with bandages Current Medications: Current Medications Sig/Jeanne Start time Last Medication Dose Route Stop Time Status Admin Acetaminophen 500 MG Q12P PRN 07/09 191 AC PO Albuterol Sulfate 3 ML Q4P PRN 07/09 2345 AC INH Clonidine 0.2 MG TID PRN 07/10 1600 AC PO Clonidine 0.1 MG ONCE ONE 07/10 1515 DC 07/10 PO 07/10 1516 1528 Clonidine 0.1 MG TID PRN 07/10 1045 DC 07/10 PO 1057 Cyanocobalamin/ 1 BAG DAILY@1700 07/10 1700 AC Thiamine/Pyridoxine IV 07/11 0059 Sodium Chloride 1,000 ML Cyanocobalamin/ 1 BAG ONCE ONE 07/09 1545 DC 07/09 Thiamine/Pyridoxine IV 07/09 2344 1709 Dextrose/Water 1,000 ML Enoxaparin Sodium 0 .STK-MED ONE 07/09 2002 DC SC Enoxaparin Sodium 40 MG DAILY 07/09 1905 AC 07/10 SC 0930 Folic Acid 1 MG DAILY 07/11 1000 AC PO Lorazepam 2 MG Q6 07/10 0600 AC 07/10 PO 1219 Lorazepam 2 MG Q6 07/09 2359 DC 07/09 PO 07/10 0001 2353 Lorazepam 0 Q1P PRN 07/09 1915 AC 07/10 IV 1423 Lorazepam 2 MG ONE ONE 07/09 1730 DC 07/09 IV 07/09 1731 1728 Lorazepam 0 .STK-MED ONE 07/09 1726 DC .ROUTE Multivitamins 1 TAB DAILY 07/11 1000 AC PO Nicotine 14 MG DAILY 07/10 1000 AC 07/10 TOP 0833 Omeprazole 40 MG DAILY AC 07/10 0700 CAN PO Ondansetron HCl 4 MG Q8P PRN 07/09 1915 AC 07/09 IV 2045 Oxycodone HCl 5 MG Q8P PRN 07/09 191 AC PO Pantoprazole Sodium 40 MG DAILY 07/10 0315 AC 07/10 IV 0929 Patient Medication 1 ED .STK-MED ONE 07/10 1340 [place] Teaching ED 07/10 1341 Patient Medication 1 UNIT ONE NR 07/09 1930 [place] Teaching ED 07/09 2000 Patient Medication 1 UNIT ONE NR 07/09 1930 [place] Teaching ED 07/09 2000 Sodium Chloride 1,000 ML BOLUS ONE 07/09 1545 DC 07/09 IV 07/09 1644 1602 Thiamine HCl 500 MG TID 07/090 AC 07/10 Sodium Chloride 100 ML IV 07/12 1702 0959 Thiamine HCl 0 .STK-MED ONE 07/09 1657 DC .ROUTE Tramadol HCl 50 MG Q6 PRN 07/09 1915 DC PO Last 24 Hrs of Lab/William Results Last 24 Hrs of Labs/Mics: Laboratory Tests 07/10/16 0620: Anion Gap 9, Estimated GFR > 60, BUN/Creatinine Ratio 10.0, CBC w Diff NO MAN DIFF REQ, RBC 4.73, MCV 93.7, MCH 31.9 H, RDW 14.3, MPV 8.8, Gran % 67.9, Lymphocytes % 22.2, Monocytes % 8.4, Eosinophils % 1.0, Basophils % 0.5, Absolute Granulocytes 4.3, Absolute Lymphocytes 1.4, Absolute Monocytes 0.5, Absolute Eosinophils 0.1, Absolute Basophils 0, PUBS MCHC 34.0 07/09/16 2230: Phosphorus 3.6, Vitamin B12 658, Folate 18.4, PT 11.1, INR 1.06 07/09/16 2105: HIV 1&2 Ab Western Blot NONREACTIVE Assessment/Plan Assessment: #Alcohol Detox/transaminitis/abdominal pain Patient is withdrawing and scoring high on CIWA even that he received the scheduled Ativan and almost 12 mg of IV Ativan (pre needed). Patient reporting consuming large amount of alcohol daily, and admission his serum alcohol was found to be to 280s. On admission he was found to have transaminitis with AST/ ALT 2:1, this is most likely secondary to alcohol abuse. Patient also had epigastric tenderness which most likely gastritis secondary to alcohol abuse. Patient had a high blood pressure with tachycardia. * Continue Ativan 2 mg every 6 scheduled * Continue 1 mg IV every when necessary * Continue thiamine, folic acid, and multivitamin * Continue PPI * Continue Zofran when necessary * Give 1 dose of clonidine #High risk Patient has a history of multiple drug abuse. He also reported that his girlfriend was chlamydia positive. He is HIV negative * Chlamydia is pending #Shortness breath, and chest pain. Patient has a long smoking history, On examination he was found to have wheezing and rhonchi over both lungs. His WBCs within normal limits. He has no fever. Chest Xray shows; No convincing acute process. * TRC when necessary #Ankylosing spondylitis with bilateral knee and hip pain. * PT eval in a.m. Regular diet DVT prophylaxis Full code Problem List: 1. Alcohol withdrawal 2. Elevated LFTs Pain Ratin Pain Location: NA Pain Goal: Remain pain free Pain Plan: See A&P Tomorrow's Labs & Rationales: cbc bep MONICA ASHRAF 07/10/16 1439: Attending MD Review Statement Attending Statement Attending MD Statement: examined this patient, discuss w/resident/PA/ROTARY OPERATOR, agreed w/resident/PA/ROTARY OPERATOR, discussed with family, reviewed EMR data (avail), discussed with nursing, discussed with case mgmt, reviewed images, amended to note Attending Assessment/Plan: A and P # Alcohol withdrawal # Metabolic acidosis # Transaminitis # Fall with knee pain # History of ankylosing spondylitis PLAN - ANGELIQUE high on admisison - Continue IV fluids, replace electrolytes, high-dose thiamine, folic acid. - Scheduled Ativan 2 mg every 6 hours, IV Ativan when necessary according to CIWA score, taper scheduled Ativan according to symptoms. - PPI, Nicotine patch - TRC, albuterol and ipratropium nebulization (history of smoking, currently wheezing) - Patient CIWA score is high, extensive alcohol history, low threshold to transfer to ICU for Ativan drip.
[2016-07-11 06:51] VITALS: BP 130/90
--- NOTE | 2016-07-11 07:00 | PN- Housestaff ---
LORENA HOLBROOK,REZA 07/11/16 0700: Subjective Follow-up For: alcohol detox Subjective: Pt seen this morning, noted general flat affect He wanted to look out the window, noted unsteady gait, walking with walker, while he was walking towards the window. Pt reported 1X waterry bowel movement yesterday. His BP has come down and heart rate also came down. currently on clonidine, appears to be well controlled. over the past 24 hrs, he received 3 mg iv ativan and 7mg po ativan. ciwa was 2 - 3, much improved compared to 5-11 last night. Review of Systems Constitutional: Reports: chills, fever. EENTM: Denies: visual changes. Cardiovascular: Denies: chest pain. Respiratory: Denies: short of breath. Gastrointestinal: Reports: diarrhea. Denies: abdominal pain. Musculoskeletal: Reports: see HPI (sore hips). Objective Last 24 Hrs of Vital Signs/I&O Vital Signs Date Time Temp Pulse Resp B/P B/P Pulse O2 O2 Flow FiO2 Mean Ox Delivery Rate 07/11 0857 97 Room Air 07/11 0651 98.5 96 20 130/90 97 Room Air 07/10 2333 99.0 89 20 130/100 95 Room Air 07/10 2150 98 Room Air Room Air 07/10 2018 102 140/100 07/10 1800 98.8 122 22 144/104 07/10 1723 118 154/102 07/10 1641 118 154/102 07/10 1528 116 172/120 07/10 1500 98.7 116 20 172/120 07/10 1500 98.7 116 20 172/120 96 Room Air Room Air 07/10 1400 98.4 120 22 152/116 07/10 1224 98.4 122 22 176/112 96 Room Air Room Air 07/10 1200 98.4 122 18 176/112 07/10 1139 98 Room Air Room Air Intake & Output 07/11 1600 07/11 0800 07/11 0000 Intake Total 985 855 Output Total 600 800 Balance 385 55 Intake, IV 625 375 Intake, Oral 360 480 Output, Urine 600 800 Physical Exam General Appearance: Alert, Oriented X3, Cooperative, No Acute Distress Skin: No Significant Lesion HEENT: Atraumatic Cardiovascular: Regular Rate, Normal S1, Normal S2, No Murmurs, Gallops Lungs: Clear to Auscultation, Normal Air Movement Abdomen: Normal Bowel Sounds, Soft, No Tenderness Neurological: Normal Speech, flat affect Extremities: No Edema Current Medications: Current Medications Sig/Jeanne Start time Last Medication Dose Route Stop Time Status Admin Acetaminophen 500 MG Q12P PRN 07/09 1914 AC PO Albuterol Sulfate 3 ML Q4P PRN 07/09 2345 AC INH Clonidine 0.2 MG TID PRN 07/10 1600 AC 07/10 PO 2018 Clonidine 0.1 MG ONCE ONE 07/10 1515 DC 07/10 PO 07/10 1516 1528 Clonidine 0.1 MG TID PRN 07/10 1045 DC 07/10 PO 1057 Cyanocobalamin/ 1 BAG DAILY@1700 07/10 1700 DC 07/10 Thiamine/Pyridoxine IV 07/11 0059 1838 Sodium Chloride 1,000 ML Enoxaparin Sodium 40 MG DAILY 07/09 190 AC 07/11 SC 1015 Folic Acid 1 MG DAILY 07/11 1000 AC 07/11 PO 1018 Hydralazine HCl 10 MG ONCE ONE 07/10 1645 DC 07/10 PO 07/10 1646 1723 Lorazepam 2 MG Q6 07/10 0600 AC 07/11 PO 0555 Lorazepam 0 Q1P PRN 07/09 191 AC 07/10 IV 2150 Melatonin 5 MG AT BEDTIME PRN 07/10 220 AC PO Multivitamins 1 TAB DAILY 07/11 1000 AC 07/11 PO 1018 Nicotine 14 MG DAILY 07/10 1000 AC 07/11 TOP 1019 Omeprazole 40 MG DAILY AC 07/11 0900 AC 07/11 PO 1018 Ondansetron HCl 4 MG Q8P PRN 07/09 1914 07/09 IV 2045 Oxycodone HCl 5 MG Q8P PRN 07/09 1914 AC 07/11 PO 1031 Pantoprazole Sodium 40 MG DAILY 07/10 0315 DC 07/10 IV 0929 Patient Medication 1 ED .STK-MED ONE 07/10 1340 DC Teaching ED 07/10 1341 Thiamine HCl 500 MG TID 07/09 2199 07/11 Sodium Chloride 100 ML IV 07/12 1702 1032 Orders CIWA Score (last 24 hrs): 2-11 Assessment/Plan Assessment: #Alcohol Detox/transaminitis/abdominal pain - Patient reporting consuming large amount of alcohol daily, and admission his serum alcohol was found to be to 280s. On admission he was found to have transaminitis with AST/ALT 2:1, this is most likely secondary to alcohol abuse. Patient also had epigastric tenderness which most likely gastritis secondary to alcohol abuse. Patient had a high blood pressure with tachycardia. * Continue Ativan PO 2 mg every 6 scheduled. Will taper as tolerated. * Continue 1 mg IV every when necessary * Continue thiamine, folic acid, and multivitamin * Continue PPI (protonix changed to omeprazole) * Continue Zofran when necessary * Clondine 0.2 mg tid for BP control. Will taper this as tolerated * Social work consult # High risk STD - Patient has a history of multiple drug abuse. He also reported that his girlfriend was chlamydia positive. He is HIV negative - Chlamydia is negative # Shortness breath, and chest pain. - Patient has a long smoking history, he was found to have wheezing and rhonchi over both lungs. His WBCs within normal limits. He has no fever. Chest Xray shows no convincing acute process. * TRC when necessary #Ankylosing spondylitis with bilateral knee and hip pain. * PT eval Regular diet DVT prophylaxis Full code Problem List: 1. Alcohol withdrawal Pain Ratin Pain Location: hips Pain Goal: Pain 4 or less Pain Plan: mild pp Tomorrow's Labs & Rationales: none DVT/Prophylaxis: mechanical, pharmacological MONICA ASHRAF 07/11/16 1033: Attending MD Review Statement Attending Statement Attending MD Statement: examined this patient, discuss w/resident/PA/LEAD TECHNICAL WRITER, agreed w/resident/PA/LEAD TECHNICAL WRITER, discussed with family, reviewed EMR data (avail), discussed with nursing, discussed with case mgmt, reviewed images, amended to note Attending Assessment/Plan: A and P # Alcohol withdrawal # Metabolic acidosis # Transaminitis # Fall with knee pain # History of ankylosing spondylitis # hypertension. PLAN - ANGELIQUE high on admisison - Continue IV fluids, replace electrolytes, high-dose thiamine, folic acid. - ativan as per ALIS, clonidine for BP control. - PPI, Nicotine patch - TRC, albuterol and ipratropium nebulization. - gi/dvt prophyalxis. cont current care
--- NOTE | 2016-07-11 08:24 | PN- Student ---
Subjective Subjective: Patient seen this morning sitting on the bedside preparing to take a shower. General flat affect, in no acute distress. Overnight complaint of sweating and chills. Patient also complains of sore hips. CIWA score is between 1-3 today. Objective Objective: Vital Signs Date Time Temp Pulse Resp B/P B/P Pulse O2 O2 Flow FiO2 Mean Ox Delivery Rate 07/11 1443 98.1 107 20 140/70 96 Room Air 07/11 0857 97 Room Air 07/11 0651 98.5 96 20 130/90 97 Room Air 07/10 2333 99.0 89 20 130/100 95 Room Air 07/10 2150 98 Room Air Room Air 07/10 2018 102 140/100 07/10 1800 98.8 122 22 144/104 07/10 1723 118 154/102 07/10 1641 118 154/102 07/10 1528 116 172/120 Intake & Output 07/11 1600 07/11 0800 07/11 0000 Intake Total 985 855 Output Total 600 800 Balance 385 55 Intake, IV 625 375 Intake, Oral 360 480 Output, Urine 600 800 Physical Exam General Appearance: Alert, Oriented X3, Cooperative, No Acute Distress Skin: No Significant Lesion HEENT: Atraumatic Cardiovascular: Regular Rate, Normal S1, Normal S2, No Murmurs, Gallops Lungs: Clear to Auscultation, Normal Air Movement Abdomen: Normal Bowel Sounds, Soft, No Tenderness Neurological: Normal Speech, flat affect Extremities: No Edema Current Medications Sig/Jeanne Start time Last Medication Dose Route Stop Time Status Admin Acetaminophen 500 MG Q12P PRN 07/09 1915 AC PO Albuterol Sulfate 3 ML Q4P PRN 07/09 2345 AC INH Clonidine 0.2 MG TID PRN 07/10 1600 AC 07/10 PO 2018 Clonidine 0.1 MG ONCE ONE 07/10 1515 DC 07/10 PO 07/10 1516 1528 Clonidine 0.1 MG TID PRN 07/10 1045 DC 07/10 PO 1057 Cyanocobalamin/ 1 BAG DAILY@1700 07/10 1700 DC 07/10 Thiamine/Pyridoxine IV 07/11 0059 1838 Sodium Chloride 1,000 ML Enoxaparin Sodium 40 MG DAILY 07/09 1905 AC 07/10 SC 0930 Folic Acid 1 MG DAILY 07/11 1000 AC PO Hydralazine HCl 10 MG ONCE ONE 07/10 1645 DC 07/10 PO 07/10 1646 1723 Lorazepam 2 MG Q6 07/10 0600 AC 07/11 PO 0555 Lorazepam 0 Q1P PRN 07/09 1914 AC 07/10 IV 2150 Melatonin 5 MG AT BEDTIME PRN 07/10 2200 AC PO Multivitamins 1 TAB DAILY 07/11 1000 AC PO Nicotine 14 MG DAILY 07/10 1000 AC 07/10 TOP 0833 Ondansetron HCl 4 MG Q8P PRN 07/09 1914 AC 07/09 IV 2045 Oxycodone HCl 5 MG Q8P PRN 07/09 191 AC 07/10 PO 2150 Pantoprazole Sodium 40 MG DAILY 07/10 0315 AC 07/10 IV 0929 Patient Medication 1 ED .STK-MED ONE 07/[address] Teaching ED 07/10 1341 Thiamine HCl 500 MG TID 07/09 2199 AC 07/10 Sodium Chloride 100 ML IV 07/12 1702 2150 Assessment/Plan Assessment: Patient is a 35 year old male with a past medical history significant for Ankylosing spondylitis and multiple admissions for alcohol detox who presented on 07/09/16 with complaint of needing alcohol detox secondary to rapid onset withdrawal symptoms. 1 - Alcohol Detox/Transaminitis/Abdominal Pain 2 - STI Risk 3 - Shortness of breath and chest pain 4 - Ankylosing Spondylitis 1 - Alcohol Detox/Transaminitis/Abdominal Pain Patient had a blood alcohol of 283 and a CIWA score of 12 on admission. CIWA score was between 8 and 16 on 07/09/16, and between 0 and 27 on 07/10/16. Patient also had an AST/ALT of 2:1 indicating alcohol induced transaminitis, as well as epigastric pain most likely due to alcohol abuse. * Ativan 2mg Q6 * Ativan 1mg as needed * INR of 1.06 * IV fluids * Psych and social consult 2 - STI Risk Patient reports that his girlfriend was tested positive for Chlamydia. He also history of alcohol abuse. * HIV 1&2 Ab Western Blot: Nonreactive * Chlamydia DNA Probe: Not detected 3 - Shortness of breath and chest pain Patient has a smoking history of 1 pack per day for 25 years, with a positive finding of wheezing and ronchi over both lungs. Patient has no fever, normal WBC , and a negative chest x-ray. * TRC when necessary 4 - Ankylosing Spondylitis * Physical evaluation * Right and left lower extremity weakness Regular diet DVT Prophylaxis Full code finding of wheezing and ronchi over both lungs. Patient has no fever, normal WBC , and a negative chest x-ray. * TRC when necessary 4 - Ankylosing Spondylitis * Physical evaluation Regular diet DVT Prophylaxis Full code
[2016-07-11 14:43] VITALS: BP 140/70
[2016-07-11 22:12] VITALS: BP 122/80
[2016-07-12] VITALS (8 sets, daily range): BP systolic 110–124; BP diastolic 70–90
--- NOTE | 2016-07-12 06:57 | PN- Housestaff ---
LORENA HOLBROOK,REZA 07/12/16 0657: Subjective Follow-up For: alcohol withdrawal Subjective: ciwa scores 0-3 over past 24 hrs, did not receive prn ativan, just po ativan 2 mg q6. can likely taper benzo. bp has been well controlled on clonidine. would consider tapering that down. he complained of 1 time episode of hematuria (drops of blood at the end of urination) yesterday that has not recurred. Review of Systems Constitutional: Reports: see HPI. Objective Last 24 Hrs of Vital Signs/I&O Vital Signs Date Time Temp Pulse Resp B/P B/P Pulse O2 O2 Flow FiO2 Mean Ox Delivery Rate 07/12 0654 97.8 89 19 124/90 99 Room Air 07/12 0000 98.0 98 19 122/80 07/11 2212 98.0 98 19 12280 94 Room Air 07/11 1932 98 Room Air Room Air 07/11 1443 98.1 107 20 140/70 96 Room Air 07/11 0857 97 Room Air Intake & Output 07/12 1600 07/12 0800 07/12 0000 Intake Total 360 1120 Output Total 650 450 Balance -290 670 Intake, IV 220 Intake, Oral 360 900 Output, Urine 650 450 Physical Exam General Appearance: Alert, Oriented X3, Cooperative HEENT: Atraumatic Cardiovascular: Regular Rate, Normal S1, Normal S2 Lungs: Clear to Auscultation, Normal Air Movement Abdomen: Normal Bowel Sounds, Soft, No Tenderness Current Medications: Current Medications Sig/Jeanne Start time Last Medication Dose Route Stop Time Status Admin Acetaminophen 500 MG Q12P PRN 07/09 PO 1239 Albuterol Sulfate 3 ML Q4P PRN 07/09 2345 AC 07/11 INH 1928 Clonidine 0.2 MG TID PRN 07/10 1600 AC 07/10 PO 2018 Enoxaparin Sodium 40 MG DAILY 07/09 19007/11 SC 1015 Folic Acid 1 MG DAILY 07/11 1000 07/11 PO 1018 Lorazepam 2 MG Q6 07/10 0600 07/12 PO 0614 Lorazepam 0 Q1P PRN 07/09 1914 AC 07/10 IV 2150 Melatonin 5 MG AT BEDTIME PRN 07/10 2200 AC PO Multivitamins 1 TAB DAILY 07/11 1000 AC 07/11 PO 1018 Nicotine 14 MG DAILY 07/10 1000 AC 07/11 TOP 1019 Omeprazole 40 MG DAILY AC 07/11 0900 AC 07/12 PO 0614 Ondansetron HCl 4 MG Q8P PRN 07/09 1914 AC 07/09 IV 2045 Oxycodone HCl 5 MG Q8P PRN 07/09 1914 AC 07/11 PO 1854 Pantoprazole Sodium 40 MG DAILY 07/10 0315 DC 07/10 IV 0929 Thiamine HCl 500 MG TID 07/09 220 AC 07/11 Sodium Chloride 100 ML IV 07/12 1702 2117 Last 24 Hrs of Lab/William Results Last 24 Hrs of Labs/Mics: Laboratory Tests 07/12/16 0617: CBC w Diff Pending, WBC Pending, RBC Pending, Hgb Pending, Hct Pending, MCV Pending, MCH Pending, RDW Pending, Plt Count Pending, MPV Pending, PUBS MCHC Pending Assessment/Plan Assessment: #Alcohol Detox/transaminitis/abdominal pain - Patient reporting consuming large amount of alcohol daily, and admission his serum alcohol was found to be to 280s. On admission he was found to have transaminitis with AST/ALT 2:1, this is most likely secondary to alcohol abuse. Patient also had epigastric tenderness which most likely gastritis secondary to alcohol abuse. Patient had a high blood pressure with tachycardia. * Wean down Ativan PO from 2q6 to 1.5q6. Will taper as tolerated. * Continue 1 mg IV ativan when necessary * Continue thiamine, folic acid, and multivitamin * Continue PPI (protonix changed to omeprazole) * Continue Zofran when necessary * Wean down Clondine 0.2 mg tid to BID for BP control. Will taper this as tolerated * Social work consult # High risk STD - Patient has a history of multiple drug abuse. He also reported that his girlfriend was chlamydia positive. He is HIV negative - Chlamydia is negative # Shortness breath, and chest pain. - Patient has a long smoking history, he was found to have wheezing and rhonchi over both lungs. His WBCs within normal limits. He has no fever. Chest Xray shows no convincing acute process. * TRC when necessary #Ankylosing spondylitis with bilateral knee and hip pain. * PT eval Regular diet DVT prophylaxis Full code Problem List: 1. Alcohol withdrawal 2. Elevated LFTs Pain Ratin Pain Location: none Pain Goal: Remain pain free Pain Plan: none Tomorrow's Labs & Rationales: none DVT/Prophylaxis: mechanical, pharmacological MONICA ASHRAF 07/12/16 1159: Attending MD Review Statement Attending Statement Attending MD Statement: examined this patient, discuss w/resident/PA/BARKEEPER, agreed w/resident/PA/BARKEEPER, discussed with family, reviewed EMR data (avail), discussed with nursing, discussed with case mgmt, reviewed images, amended to note Attending Assessment/Plan: A and P # Alcohol withdrawal # Metabolic acidosis # Transaminitis # Fall with knee pain # History of ankylosing spondylitis # hypertension. PLAN - ANGELIQUE high on admisison - Continue IV fluids, replace electrolytes, high-dose thiamine, folic acid. - ativan as per CIWA, clonidine for BP control. - PPI, Nicotine patch - TRC, albuterol and ipratropium nebulization. - gi/dvt prophyalxis. cont current care
[2016-07-12 08:04] LABS: ABSOLUTE BASOPHIL COUNT 0 /CUMM (0.0-0.2); ABSOLUTE EOSINOPHIL COUNT 0.2 /CUMM (0.0-0.7); ABSOLUTE GRANULOCYTE CT 2.8 /CUMM (1.4-6.5); ABSOLUTE LYMPH COUNT 1.5 /CUMM (1.2-3.4); ABSOLUTE MONOCYTE COUNT 0.4 /CUMM (0.10-0.60); BASOPHIL % 0.2 % (0.0-2.0); EOSINOPHIL % 4.3 % (0-5); GRANULOCYTE % 57.1 % (42.2-75.2); HEMATOCRIT 43.6 % (42-52); MEAN CORPUSCULAR HGB 32.1 PG (27.0-31.0); MEAN CORPUSCULAR HGB CONC 34.2 G/DL (33.0-37.0); MEAN CORPUSCULAR VOLUME 93.8 FL (80.0-94.0); MEAN PLATELET VOLUME 9.3 FL (7.4-10.4); PLATELET COUNT 149 /CUMM (130-400); RBC DISTRIBUTION WIDTH 14.3 % (11.5-14.5); RED BLOOD CELL CT 4.64 /CUMM (4.70-6.10); WHITE BLOOD CELL COUNT 4.9 /CUMM (4.8-10.8)
--- NOTE | 2016-07-12 14:32 | PN- Student ---
Subjective Subjective: Patient was seen this morning sleeping in bed. No acute overnight reports. Patient did not require Ativan PRN. CIWA score was between 0-9 today. Objective Objective: Vital Signs Date Time Temp Pulse Resp B/P B/P Pulse O2 O2 Flow FiO2 Mean Ox Delivery Rate 07/12 1410 97.7 104 18 118/70 96 Room Air 07/12 1200 97.8 101 20 120/90 07/12 0943 97.8 89 19 120/90 07/12 0859 98 Room Air Room Air 07/12 0800 97.8 89 19 120/90 07/12 0654 97.8 89 19 124/90 99 Room Air 07/12 0000 98.0 98 19 122/80 07/11 2212 98.0 98 19 122/80 94 Room Air 07/11 1932 98 Room Air Room Air 07/11 1443 98.1 107 20 140/70 96 Room Air Intake & Output 07/12 1600 07/12 0800 07/12 0000 Intake Total 360 1120 Output Total 650 450 Balance -290 670 Intake, IV 220 Intake, Oral 360 900 Output, Urine 650 450 General Appearance: Alert, Oriented X3, Cooperative HEENT: Atraumatic Cardiovascular: Regular Rate, Normal S1, Normal S2 Lungs: Clear to Auscultation, Normal Air Movement Abdomen: Normal Bowel Sounds, Soft, No Tenderness Current Medications Sig/Jeanne Start time Last Medication Dose Route Stop Time Status Admin Acetaminophen 500 MG Q12P PRN 07/09 1914 AC 07/12 PO 1108 Albuterol Sulfate 3 ML Q4P PRN 07/09 2345 AC 07/11 INH 1928 Clonidine 0.2 MG BID 07/12 1000 AC 07/12 PO 0943 Clonidine 0.2 MG TID PRN 07/10 1600 DC 07/10 PO 2018 Enoxaparin Sodium 40 MG DAILY 07/09 190 AC 07/12 SC 0943 Folic Acid 1 MG DAILY 07/11 1000 AC 07/12 PO 0943 Lorazepam 1.5 MG Q6 07/12 1200 AC 07/12 PO 1157 Lorazepam 2 MG Q6 07/10 0600 DC 07/12 PO 0614 Lorazepam 0 Q1P PRN 07/09 1914 AC 07/12 IV 1203 Melatonin 5 MG AT BEDTIME PRN 07/10 2200 AC PO Multivitamins 1 TAB DAILY 07/11 1000 AC 07/12 PO 0943 Nicotine 14 MG DAILY 07/10 1000 07/12 TOP 1003 Omeprazole 40 MG DAILY AC 07/11 0900 AC 07/12 PO 0614 Ondansetron HCl 4 MG Q8P PRN 07/09 1914 AC 07/09 IV 2045 Oxycodone HCl 5 MG Q8P PRN 07/09 1914 AC 07/12 PO 1021 Patient Medication 1 ED .[facility]-MED ONE 07/12 1407 [place] Teaching ED 07/12 1408 Thiamine HCl 500 MG TID 07/09 2200 07/12 Sodium Chloride 100 ML IV 07/12 1702 0943 Assessment/Plan Assessment: Patient is a 35 year old male with a past medical history significant for Ankylosing spondylitis and multiple admissions for alcohol detox who presented on 07/09/16 with complaint of needing alcohol detox secondary to rapid onset withdrawal symptoms. 1 - Alcohol Detox/Transaminitis/Abdominal Pain 2 - STI Risk 3 - Shortness of breath and chest pain 4 - Ankylosing Spondylitis 1 - Alcohol Detox/Transaminitis/Abdominal Pain Patient had a blood alcohol of 283 and a CIWA score of 12 on admission. CIWA score was between 8 and 16 on 07/09/16, and between 0 and 27 on 07/10/16. Patient also had an AST/ALT of 2:1 indicating alcohol induced transaminitis, as well as epigastric pain most likely due to alcohol abuse. * Terri Ativan from 2mg Q6 to 1.5mg Q6 * Continue Ativan 1mg as needed * Terri Clonidine 0.2mg TID to BID * Continue PPI (Omeprazole) * IV fluids * Psych and social consult 2 - STI Risk Patient reports that his girlfriend was tested positive for Chlamydia. He also history of alcohol abuse. * HIV 1&2 Ab Western Blot: Nonreactive * Chlamydia DNA Probe: Not detected 3 - Shortness of breath and chest pain Patient has a smoking history of 1 pack per day for 25 years, with a positive finding of wheezing and ronchi over both lungs. Patient has no fever, normal WBC , and a negative chest x-ray. * TRC when necessary 4 - Ankylosing Spondylitis * Physical evaluation * Right and left lower extremity weakness Regular diet DVT Prophylaxis Full code
[2016-07-13 06:39] VITALS: BP 112/70
--- NOTE | 2016-07-13 07:11 | PN- Housestaff ---
LORENA HOLBROOK,REZA 07/13/16 0711: Subjective Follow-up For: alcohol detox Subjective: his ciwa has been 0 for the most part. he is feeling ok and plan to follow up with IOP at discharge. will taper ativan from 1.5q6 to 1q8, plan to discharge tomorrow. over last 24 hrs, he received 8 mg po ativan, and 1 mg iv ativan for 1 time ciwa of 9. his bp has remained wnl, will further taper clonidine to 0.1 bid from 0.2 bid. Review of Systems Constitutional: Reports: see HPI. Objective Last 24 Hrs of Vital Signs/I&O Vital Signs Date Time Temp Pulse Resp B/P B/P Pulse O2 O2 Flow FiO2 Mean Ox Delivery Rate 07/13 0639 97.6 71 18 112/70 93 Room Air 07/12 2312 98.3 90 20 122/78 94 Room Air 07/12 2151 98.3 90 20 122/78 07/12 2148 20 122/78 07/12 1600 98.1 88 18 110/82 07/12 1410 97.7 104 18 118/70 96 Room Air 07/12 1200 97.8 101 20 120/90 07/12 0943 97.8 89 19 120/90 07/12 0859 98 Room Air Room Air Intake & Output 07/13 1600 07/13 0800 07/13 0000 Intake Total 100 100 Output Total 800 650 Balance -700 -550 Intake, Oral 100 100 Output, Urine 800 650 Physical Exam General Appearance: Alert, Oriented X3, Cooperative, No Acute Distress Cardiovascular: Regular Rate, Normal S1, Normal S2 Lungs: Clear to Auscultation, Normal Air Movement Abdomen: Normal Bowel Sounds, Soft, No Tenderness Neurological: Normal Speech Extremities: No Edema Current Medications: Current Medications Sig/Jeanne Start time Last Medication Dose Route Stop Time Status Admin Acetaminophen 500 MG Q12P PRN 07/09 1915 AC 07/12 PO 1108 Albuterol Sulfate 3 ML Q4P PRN 07/09 2345 AC 07/11 INH 1928 Clonidine 0.1 MG BID 07/13 1000 UNVr PO Clonidine 0.2 MG BID 07/12 1000 DC 07/12 PO 2148 Enoxaparin Sodium 40 MG DAILY 07/09 1905 AC 07/12 SC 0943 Folic Acid 1 MG DAILY 07/11 1000 AC 07/12 PO 0943 Lorazepam 1 MG Q8 07/13 1400 AC PO Lorazepam 1.5 MG Q6 07/12 1200 DC 07/13 PO 0640 Lorazepam 0 Q1P PRN 07/09 191 AC 07/12 IV 1203 Melatonin 5 MG AT BEDTIME PRN 07/10 2200 AC 07/12 PO 2147 Multivitamins 1 TAB DAILY 07/11 1000 AC 07/12 PO 0943 Nicotine 14 MG DAILY 07/10 1000 AC 07/12 TOP 1003 Omeprazole 40 MG DAILY AC 07/11 0900 AC 07/13 PO 0640 Ondansetron HCl 4 MG Q8P PRN 07/09 1914 AC 07/09 IV 2045 Oxycodone HCl 5 MG Q8P PRN 07/09 1914 AC 07/12 PO 2023 Patient Medication 1 ED .STK-MED ONE 07/12 1407 [place] Teaching ED 07/12 1408 Thiamine HCl 500 MG TID 07/09 2199 DC 07/12 Sodium Chloride 100 ML IV 07/12 1702 1654 Assessment/Plan Assessment: #Alcohol Detox/transaminitis/abdominal pain - Patient reporting consuming large amount of alcohol daily, and admission his serum alcohol was found to be to 280s. On admission he was found to have transaminitis with AST/ALT 2:1, this is most likely secondary to alcohol abuse. Patient also had epigastric tenderness which most likely gastritis secondary to alcohol abuse. Patient had a high blood pressure with tachycardia. * Wean down Ativan PO from 1.5q6 to 1q8. Will taper as tolerated. * Plan to dc tomorrow, will f/u with IOP * Continue 1 mg IV ativan when necessary * Continue thiamine, folic acid, and multivitamin * Continue PPI (omeprazole) * Continue Zofran when necessary * Wean down Clonidine 0.2 mg BID to 0.1 bid for BP control. Will taper this as tolerated * Social work consult # High risk STD - Patient has a history of multiple drug abuse. He also reported that his girlfriend was chlamydia positive. He is HIV negative - Chlamydia is negative # Shortness breath, and chest pain. - Patient has a long smoking history, he was found to have wheezing and rhonchi over both lungs. His WBCs within normal limits. He has no fever. Chest Xray shows no convincing acute process. * TRC when necessary #Ankylosing spondylitis with bilateral knee and hip pain. * PT eval Regular diet DVT prophylaxis Full code Problem List: 1. Alcohol withdrawal Pain Ratin Pain Location: none Pain Goal: Remain pain free Pain Plan: mild pp Tomorrow's Labs & Rationales: none DVT/Prophylaxis: mechanical, pharmacological MONICA ASHRAF 07/13/16 1348: Attending MD Review Statement Attending Statement Attending MD Statement: examined this patient, discuss w/resident/PA/MECHANIC AND WELDER, agreed w/resident/PA/MECHANIC AND WELDER, discussed with family, reviewed EMR data (avail), discussed with nursing, discussed with case mgmt, reviewed images, amended to note Attending Assessment/Plan: A and P # Alcohol withdrawal # Metabolic acidosis # Transaminitis # Fall with knee pain # History of ankylosing spondylitis # hypertension. PLAN - ANGELIQUE high on admisison - Continue IV fluids, replace electrolytes, high-dose thiamine, folic acid. - ativan as per CIWA, clonidine for BP control. - PPI, Nicotine patch - TRC, albuterol and ipratropium nebulization. - gi/dvt prophyalxis. cont current care, d/c anticipated in next 24hrs.
--- NOTE | 2016-07-13 13:23 | PN- Student ---
Subjective Subjective: Patient was seen this morning laying in bed. No acute overnight reports. Patient denies any current complaint. CIWA scoring was between 0-8 today. Objective Objective: Vital Signs Date Time Temp Pulse Resp B/P B/P Pulse O2 O2 Flow FiO2 Mean Ox Delivery Rate 07/13 1117 95 Room Air 07/13 1012 98.0 96 20 132/80 07/13 0639 97.6 71 18 112/70 93 Room Air 07/12 2312 98.3 90 20 122/78 94 Room Air 07/12 2151 98.3 90 20 122/78 07/12 2148 20 122/78 07/12 1600 98.1 88 18 110/82 07/12 1410 97.7 104 18 118/70 96 Room Air Intake & Output 07/13 1600 07/13 0800 07/13 0000 Intake Total 100 100 Output Total 800 650 Balance -700 -550 Intake, Oral 100 100 Number 1 Bowel Movements Output, Urine 800 650 Physical Exam General Appearance: Alert, Oriented X3, Cooperative, No Acute Distress Cardiovascular: Regular Rate, Normal S1, Normal S2 Lungs: Clear to Auscultation, Normal Air Movement Abdomen: Normal Bowel Sounds, Soft, No Tenderness Neurological: Normal Speech Extremities: No Edema Current Medications Sig/Jeanne Start time Last Medication Dose Route Stop Time Status Admin Acetaminophen 500 MG Q12P PRN 07/09 1914 AC 07/12 PO 1108 Albuterol Sulfate 2 PUF Q4P PRN 07/13 1130 AC INH Albuterol Sulfate 3 ML Q4P PRN 07/09 2345 DC 07/11 INH 1928 Clonidine 0.1 MG BID 07/13 1000 AC 07/13 PO 1012 Clonidine 0.2 MG BID 07/12 1000 DC 07/12 PO 2148 Enoxaparin Sodium 40 MG DAILY 07/09 190 AC 07/13 SC 1012 Folic Acid 1 MG DAILY 07/11 1000 AC 07/13 PO 1012 Lorazepam 1 MG Q8 07/13 1400 AC PO Lorazepam 1.5 MG Q6 07/12 1200 DC 07/13 PO 0640 Lorazepam 0 Q1P PRN 07/09 191 AC 07/13 IV 1012 Melatonin 5 MG AT BEDTIME PRN 07/10 2200 AC 07/12 PO 2147 Multivitamins 1 TAB DAILY 07/11 1000 AC 07/13 PO 1012 Nicotine 14 MG DAILY 07/10 1000 AC 07/13 TOP 1016 Omeprazole 40 MG DAILY AC 07/11 0900 07/13 PO 0640 Ondansetron HCl 4 MG Q8P PRN 07/09 1915 AC 07/09 IV 2045 Oxycodone HCl 5 MG Q8P PRN 07/09 1914 AC 07/13 PO 1015 Patient Medication 1 ED .STK-MED ONE 07/12 1407 SD Teaching ED 07/12 1408 Thiamine HCl 500 MG TID 07/09 2200 SD 07/12 Sodium Chloride 100 ML IV 07/12 1702 1654 Assessment/Plan Assessment: Patient is a 35 year old male with a past medical history significant for Ankylosing spondylitis and multiple admissions for alcohol detox who presented on 07/09/16 with complaint of needing alcohol detox secondary to rapid onset withdrawal symptoms. 1 - Alcohol Detox/Transaminitis/Abdominal Pain 2 - STI Risk 3 - Shortness of breath and chest pain 4 - Ankylosing Spondylitis 1 - Alcohol Detox/Transaminitis/Abdominal Pain Patient had a blood alcohol of 283 and a CIWA score of 12 on admission. CIWA score was between 8 and 16 on 07/09/16, and between 0 and 27 on 07/10/16. Patient also had an AST/ALT of 2:1 indicating alcohol induced transaminitis, as well as epigastric pain most likely due to alcohol abuse. * Terri Ativan from 1.5mg Q6 to 1mg Q8 * Continue Ativan 1mg IV as needed * Terri Clonidine 0.2mg BID to 0.1mg BID * Continue PPI (Omeprazole) * IV fluids * Psych and social consult * Will most likely be discharged tomorrow 2 - STI Risk Patient reports that his girlfriend was tested positive for Chlamydia. He also history of alcohol abuse. * HIV 1&2 Ab Western Blot: Nonreactive * Chlamydia DNA Probe: Not detected 3 - Shortness of breath and chest pain Patient has a smoking history of 1 pack per day for 25 years, with a positive finding of wheezing and ronchi over both lungs. Patient has no fever, normal WBC , and a negative chest x-ray. * TRC when necessary 4 - Ankylosing Spondylitis * Physical evaluation * Right and left lower extremity weakness Regular diet DVT Prophylaxis Full code
[2016-07-13 14:22] VITALS: BP 114/70
[2016-07-13] MEDS ORDERED: LORAZEPAM1 M1 PO (19:40)
[2016-07-13] MEDS ORDERED: ONE DAILY MULT1 EAC2 PO (19:40)
[2016-07-13] MEDS ORDERED: FOLIC ACID1 M1 PO (19:40)
[2016-07-13] MEDS ORDERED: VITAMIN B-1100 MG PO (19:40)
[2016-07-13] MEDS ORDERED: CLONIDINE HCL0.1 MG PO (19:40)
--- NOTE | 2016-07-13 19:42 | Patient Discharge Instructions ---
Discharge Instructions General Discharge Information You were seen/treated for: ALCOHOL DETOX Special Instructions: PLEASE F/U WITH ALCOHOL REHAB CENRE RECOMMENDATIONS. Acute Coronary Syndrome Inclusion Criteria At DC or during hospital stay patient has or had the following: ACS DIAGNOSIS No Discharge Core Measures Meds if any: Prescribed or Continued at Discharge Meds if any: NOT Prescribed or Continued at Discharge Congestive Heart Failure Inclusion Criteria At DC or during hospital stay patient has or had the following: CHF DIAGNOSIS No Discharge Core Measures Meds if any: Prescribed or Continued at Discharge Meds if any: NOT Prescribed or Continued at Discharge Cerebrovascular accident Inclusion Criteria At DC or during hospital stay patient has or had the following: CVA/TIA Diagnosis No Discharge Core Measures Meds if any: Prescribed or Continued at Discharge Meds if any: NOT Prescribed or Continued at Discharge Venous thromboembolism Inclusion Criteria VTE Diagnosis No VTE Type NONE VTE Confirmed by (Test) NONE Discharge Core Measures - Per Current guidelines, there needs to be overlap - treatment for the first 5 days of Warfarin therapy. - If discharged on Warfarin prior to 5 days of - overlap therapy, the patient will need to be - assessed for post discharge needs including - *Post discharge parental anticoagulation - *Warfarin and/or parental anticoagulation education - *Follow up date to check INR post discharge At least 5 days overlap therapy as Inpatient No Meds if any: Prescribed or Continued at Discharge Note: Overlap Therapy is Warfarin and Anticoagulant Meds if any: NOT Prescribed or Continued at Discharge
[2016-07-13 22:20] VITALS: BP 108/80
[2016-07-14 02:01] VITALS: BP 110/86
[2016-07-14 06:21] VITALS: BP 122/86
--- NOTE | 2016-07-14 06:52 | PN- Housestaff ---
LORENA HOLBROOK,REZA 07/14/16 0652: Subjective Follow-up For: alcohol detox Subjective: pt feeling well today, reports no overnight events. ciwa has been 0 for the most part and he received total of 4mg po ativan in the last 24 hrs. plan to dc home today with taper. Review of Systems Constitutional: Reports: see HPI. Objective Last 24 Hrs of Vital Signs/I&O Vital Signs Date Time Temp Pulse Resp B/P B/P Pulse O2 O2 Flow FiO2 Mean Ox Delivery Rate 07/14 0621 97.5 80 20 122/86 97 Room Air 07/14 0201 97.9 80 20 110/86 98 Room Air 07/13 2220 98.1 97 18 108/80 97 07/13 2147 72 114/70 07/13 1422 98.6 72 18 114/70 100 Room Air 07/13 1117 95 Room Air 07/13 1012 98.0 96 20 132/80 Intake & Output 07/14 1600 07/14 0800 07/14 0000 Intake Total Output Total 850 550 Balance -850 -550 Output, Urine 850 550 Physical Exam General Appearance: Alert, Oriented X3, Cooperative, No Acute Distress HEENT: Atraumatic Cardiovascular: Regular Rate, Normal S1, Normal S2 Lungs: Clear to Auscultation, Normal Air Movement Abdomen: Normal Bowel Sounds, Soft, No Tenderness Neurological: Normal Speech Current Medications: Current Medications Sig/Jeanne Start time Last Medication Dose Route Stop Time Status Admin Acetaminophen 500 MG Q12P PRN 07/09 1915 AC 07/13 PO 1326 Albuterol Sulfate 2 PUF Q4P PRN 07/13 1130 AC INH Albuterol Sulfate 3 ML Q4P PRN 07/09 2345 DC 07/11 INH 1928 Clonidine 0.1 MG BID 07/13 1000 DC 07/13 PO 2147 Enoxaparin Sodium 40 MG DAILY 07/09 1905 AC 07/13 SC 1012 Folic Acid 1 MG DAILY 07/11 1000 AC 07/13 PO 1012 Ibuprofen 400 MG ONCE ONE 07/14 1999 DC 07/13 PO 07/13 2000 204 Lorazepam 0.5 MG BID 07/14 1000 AC PO 07/21 0959 Lorazepam 0 Q1P PRN 07/14 0245 AC IV Lorazepam 1 MG Q8 07/13 1400 DC 07/14 PO 0548 Lorazepam 0 Q1P PRN 07/09 1915 DC 07/13 IV 1012 Melatonin 5 MG AT BEDTIME PRN 07/10 2200 AC 07/12 PO 2147 Multivitamins 1 TAB DAILY 07/11 1000 AC 07/13 PO 1012 Nicotine 14 MG DAILY 07/10 1000 AC 07/13 TOP 1016 Omeprazole 40 MG DAILY AC 07/11 0900 AC 07/14 PO 0548 Ondansetron HCl 4 MG Q8P PRN 07/09 1914 AC 07/09 IV 2045 Oxycodone HCl 5 MG Q8P PRN 07/09 1914 AC 07/13 PO 1747 Assessment/Plan Assessment: #Alcohol Detox/transaminitis/abdominal pain - Patient reporting consuming large amount of alcohol daily, and admission his serum alcohol was found to be to 280s. On admission he was found to have transaminitis with AST/ALT 2:1, this is most likely secondary to alcohol abuse. Patient also had epigastric tenderness which most likely gastritis secondary to alcohol abuse. Patient had a high blood pressure with tachycardia. * Wean down Ativan PO from 1q8 to 1q24. Will dc with 1 X 0.5 mg ativan for tomorrow. * Plan to dc today, will f/u with IOP * Continue 1 mg IV ativan when necessary * Continue thiamine, folic acid, and multivitamin * Continue PPI (omeprazole) * Continue Zofran when necessary * Clonidine discontinued * Social work consult # High risk STD - Patient has a history of multiple drug abuse. He also reported that his girlfriend was chlamydia positive. He is HIV negative - Chlamydia is negative # Shortness breath, and chest pain. - Patient has a long smoking history, he was found to have wheezing and rhonchi over both lungs. His WBCs within normal limits. He has no fever. Chest Xray shows no convincing acute process. * TRC when necessary #Ankylosing spondylitis with bilateral knee and hip pain. * PT eval Regular diet DVT prophylaxis Full code Problem List: 1. Alcohol withdrawal Pain Ratin Pain Location: none Pain Goal: Pain 4 or less Pain Plan: mild pp Tomorrow's Labs & Rationales: none DVT/Prophylaxis: mechanical, pharmacological MONICA ASHRAF 07/14/16 1103: Attending Review Statement Attending Statement Attending MD Statement: examined this patient, discuss w/resident/PA/JAR FILLER, agreed w/resident/PA/JAR FILLER, discussed with family, reviewed EMR data (avail), discussed with nursing, discussed with case mgmt, reviewed images, amended to note Attending Assessment/Plan: A and P # Alcohol withdrawal # Metabolic acidosis # Transaminitis # Fall with knee pain # History of ankylosing spondylitis # hypertension. PLAN - ANGELIQUE high on admisison - Continue IV fluids, replace electrolytes, high-dose thiamine, folic acid. - ativan as per CIWA, clonidine for BP control. - PPI, Nicotine patch - TRC, albuterol and ipratropium nebulization. - gi/dvt prophyalxis. anticipate d/c soon. patient clinically improved.
[2016-07-14] MEDS ORDERED: LORAZEPAM1 M1 PO ×2 (08:37→09:48)
--- NOTE | 2016-07-14 10:44 | Discharge Summary ---
Visit Information Visit Dates Admission Date: 07/09/16 Discharge Date: 07/14/16 Hospital Course Course Attending Physician: MONICA ASHRAF MD Primary Care Physician: UNKNOWN Hospital Course: 35/M with PMHx of ankylosing spondylitis and multiple alcohol detox admission presented to [facility] asking for alcohol detox. Patient has a history of multiple alcohol detox admissions with one episode of seizure that required ICU admission in 2011. Patient started drinking again around one year ago, he drinks approximately 3 pints of [employer] comfort and 12 beers daily. He tolerated ativan taper well and was dicharged with one more dose of 0.5 mg ativan. Pt will follow up with IOP. Due to concerns of STD, he was checked for chlamydia and HIV, which was negative. Allergies: Coded Allergies: NO KNOWN ALLERGIES (08/23/12) Disposition Summary Disposition Principal Diagnosis: Alcohol detox Additional Diagnosis: Anklylosing spondylitis Discharge Disposition: home or self care Discharge Instructions General Discharge Information Code Status: Full Code Patient's Diet: Regular Patient's Activity: As tolerated Follow-Up Instructions/Appts: Follow up IOP Medications at Discharge Discharge Medications: Start taking the following new medications: Lorazepam (Lorazepam) 1 MG TABLET 0.5 Milligram ORAL SEE INSTRUCTIONS Qty = 1 No Refills Instructions: TAKE 0.5 MG ON 07/15/16 AND THEN STOP Comments: Last Taken: 07/14/16 Time: 0600AM Folic Acid (Folic Acid) 1 MG TABLET 1 Milligram ORAL DAILY Qty = 30 No Refills Comments: Last Taken: 07/14/16 Time: 1045AM Multivitamin (One Daily Multivitamin) 1 EACH TABLET 1 Tablet ORAL DAILY Qty = 30 No Refills Comments: Last Taken:07/14/16 Time: 1045AM Thiamine HCl (Vitamin B-1) 100 MG TABLET 1 Tablet ORAL DAILY Qty = 30 No Refills Comments: Last Taken: 07/14/16 Time: 1045AM Copies To: PASCALE HOLBROOK,MONICA Attending MD Review Statement Documenting Attending: MONICA ASHRAF MD
== END 2016-07-14 11:17 | DRG 897 ==
LOC: ERH 12:12 → ERHI 18:04 → 2NB 18:04 → ENRESERV 19:08 → 2NB 20:20 → ENPENDDIS 07-14 09:53 → 2NB 07-14 11:17
PROVIDERS: Internal Medicine Hematology & Oncology; Physician Assistant; Radiology Diagnostic Radiology; ADMIT Internal Medicine
DX: F10.239 Alcohol dependence with withdrawal, unspecified (principal); E87.2 Acidosis; M06.9 Rheumatoid arthritis, unspecified; M45.9 Ankylosing spondylitis of unspecified sites in spine; Y90.8 Blood alcohol level of 240 mg/100 ml or more; M25.562 Pain in left knee; M25.561 Pain in right knee; M25.552 Pain in left hip; M25.551 Pain in right hip
CPT/HCPCS: 2NBSP; 73562-RT; 80307; 81001; 82436; 87389; 87491; 93005; 93010; 96361; 96374; 96375; 96376; 97116-GO; G0480; J1650; J2405; J3490; J7060